=== PATIENT | female | born 1980 | race Two or more races ===

== ENCOUNTER → 2024-12-13 | Outpatient (CLI) | payer MEDICAID, SELFPAY ==
--- NOTE | 2024-12-13 10:30 | XR_ITS ---
Examination: Breast ultrasound, unilateral, left complete Date and time of exam: December 13, 2024 1112 hours INDICATIONS: Outside mammogram July 14, 2024 10 mm focal asymmetry lower inner quadrant left breast Technique: Real-time hodges scale ultrasonographic imaging performed left breast including all 4 quadrants as well as nipple retroareolar and axillary region. Findings: No cystic or solid mass IMPRESSION: BI-RADS Category 1: Negative study
--- NOTE | 2024-12-13 11:15 | XR_ITS ---
Examination: Diagnostic digital mammography, unilateral, left Computer aided detection 3-D breast Tomosynthesis, unilateral Date and time of exam: December 13, 2024 1135 hours INDICATIONS: Outside mammogram July 14, 2024 10 mm focal asymmetry inner left breast Technique: Nonmagnified MLO, CC views of the left breast have been obtained, reconstructed from 3-D Tomosynthesis images. R2 computer aided detection program utilized for evaluation of suspicious masses and/or abnormal calcifications. 3-D Tomosynthesis images obtained. Findings: Scattered areas of fibroglandular density. No suspicious nodule noted on the spot compression views Impression: BI-RADS category 2: Benign findings Recommend yearly follow-up mammography
== END | disposition home or self-care (01) ==
LOC: CDIM 10:44
DX: R92.322 Mammographic fibroglandular density, left breast (principal)
CPT/HCPCS: 76641; 77061; 77065; G0279